=== PATIENT | female | born 1995 | race Caucasian/White ===

== ENCOUNTER 2021-01-12 17:20 | Emergency (ER) | payer OTHER, SELFPAY ==
[2021-01-12 18:21] VITALS: BP 136/85; PULSE 73; RESP 16; BMI 21.7
[2021-01-12 19:06] VITALS: BP 140/73; PULSE 88; RESP 18; TEMP 36.8; O2SAT 100
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
[2021-01-12] MEDS: diazePAM 2 MG TABLET PO (19:31)
== END 2021-01-12 19:44 | disposition home or self-care (01) ==
PROVIDERS: Emergency Provider Emergency Medicine; PCP Internal Medicine
DX: S13.4XXA Sprain of ligaments of cervical spine, initial encounter (principal); S80.01XA Contusion of right knee, initial encounter; V43.62XA Car passenger injured in collision with other type car in traffic accident, initial encounter; Y93.9 Activity, unspecified; Y92.410 Unspecified street and highway as the place of occurrence of the external cause; Y99.9 Unspecified external cause status; F12.90 Cannabis use, unspecified, uncomplicated; Z72.89 Other problems related to lifestyle; Z79.899 Other long term (current) drug therapy; M54.2 Cervicalgia
CPT/HCPCS: 99283; 99284